=== PATIENT | female | born 1950 | race Asian ===

== ENCOUNTER 2018-08-12 11:26 | Inpatient (IN) | payer OTHER ==
[~2018-08-12] VITALS: Ht 149.9 cm; Wt 44.3 kg
[2018-08-12] MEDS ORDERED: ALBUTEROL SULFATE 5 MG/ML 20 ML NEB SOLN [BULK] NEB ONE (11:45)
[2018-08-12] MEDS ORDERED: ASPI81 PO (11:45)
[2018-08-12] MEDS ORDERED: GUAI118S23 PO (11:45)
[2018-08-12] MEDS ORDERED: MethylPREDNISolone SOD SUCC 125 MG/2 ML VIAL IVP ONE (11:45)
[2018-08-12] MEDS ORDERED: ASPIRIN 81 MG CHEWABLE TABLET PO ONE (11:45)
[2018-08-12] MEDS ORDERED: LORA10TA7 PO (11:45)
[2018-08-12] MEDS ORDERED: MONT10TA21 PO (11:45)
[2018-08-12] MEDS ORDERED: OMEP10 PO (11:45)
[2018-08-12 12:10] LABS: BASOPHILS % (AUTO) 1.3 % (0.0-2.0); EOSINOPHILS % (AUTO) 4.3 % (1.0-6.0); HEMATOCRIT 36.5 % (36-46); HEMOGLOBIN 12.1 g/dL (12.0-16.0); LYMPHOCYTES # (AUTO) 1.1 K/uL (1.0-4.8); LYMPHOCYTES % (AUTO) 13.6 % (22.0-44.0); MEAN CORPUSCULAR HEMOGLOBIN 29.8 pg (26.0-34.0); MEAN CORPUSCULAR HGB CONC 33.2 G/dL (31.0-37.0); MEAN CORPUSCULAR VOLUME 90 fL (80-100); MONOCYTES # (AUTO) 0.5 K/uL (0.1-1.0); MONOCYTES % (AUTO) 6.5 % (2.0-9.0); NEUTROPHILS # (AUTO) 6.1 K/uL (1.8-7.7); NEUTROPHILS % (AUTO) 74.3 % (40.0-70.0); PLATELET COUNT (AUTO) 509 K/uL (150-450); RED BLOOD CELL COUNT(AUTO) 4.07 MIL/uL (4.00-5.20); RED CELL DISTRIBUTION WIDTH 12.9 % (11.5-14.5)
[2018-08-12 12:26] LABS: B-TYPE NATRIURETIC PEPTIDE 110 pg/mL (0-100)
[2018-08-12 12:39] LABS: ABG A-A DIFF O2 20.3 mmHg (10-20.0); ABG BASE EXCESS 10.8 mmol/L (-2.0-3.0); ABG CARBOXYHEMOGLOBIN 1.1 % (0.0-1.5); ABG HCO3 31.8 mmol/L (22.0-26.0); ABG METHEMOGLOBIN 0.6 % (0.0-1.5); ABG OXYGEN CONTENT 17.1 mL/dL (15.0-23.0); ABG OXYGEN SATURATION 99.3 % (95.0-98.0); ABG OXYHEMOGLOBIN 97.6 % (94.0-100.0); ABG PH 7.264 (7.35-7.450); ABG TOTAL HEMOGLOBIN 12.2 G/dL (12.0-18.0); PO2, ARTERIAL BG 166.2 mmHg (79.0-87.0); SOURCE, BLOOD GAS ARTERIAL; TEMPERATURE, FAHRENHEIT, BG 99.1 FAHREN (96.0-98.6)
[2018-08-12 12:40] LABS: ABG PCO2 86 mmHg (35-45); O2 DEVICE,BLOOD GAS BIPAP (ROOM AIR); SITE, BLOOD GAS RT RADIAL
[2018-08-12] MEDS ORDERED: 0.9% SODIUM CHLORIDE 15 ML NEB SOLUTION NEB ONE (12:43)
[2018-08-12 12:46] LABS: ALANINE AMINOTRANSFERASE 27 U/L (12-78); ALBUMIN 3.7 g/dL (3.4-5.0); ALKALINE PHOSPHATASE 68 U/L (46-116); ANION GAP -1 mmol/L (8-16); ASPARTATE AMINOTRANSFERASE 22 U/L (15-37); BILIRUBIN,TOTAL 0.2 mg/dL (0.1-1.0); CALCIUM, TOTAL 9.4 mg/dL (8.8-10.5); CHLORIDE 100 mmol/L (98-107); CREATINE KINASE, TOTAL ONLY 81 U/L (26-192); CREATININE 0.54 mg/dL (0.60-1.30); GLOMERULAR FILTR. RATE CALC > 60 mL/min (>60); GLUCOSE,RANDOM 160 mg/dL (70-110); SODIUM SERUM 144 mmol/L (136-145); TOTAL PROTEIN, SERUM 7.4 g/dL (6.4-8.2); UREA NITROGEN, BLOOD 5 mg/dL (7-18)
[2018-08-12 12:49] LABS: CARBON DIOXIDE 45 mmol/L (22-29)
[2018-08-12] MEDS ORDERED: MAGNESIUM HYDROXIDE SUSPENSION 30 ML UDCUP PO PRN (13:00)
[2018-08-12] MEDS ORDERED: ACETAMINOPHEN 325 MG TABLET PO PRN (13:00)
[2018-08-12] MEDS ORDERED: DEXTROSE 50%-WATER 25 GM/50 ML SYRINGE IVP PRN (13:00)
[2018-08-12] MEDS: AZITHROMYCIN 500 MG/NS 250 ML IV SCH (13:06)
[2018-08-12 13:08] LABS: APPEARANCE,URINE CLEAR (CLEAR); BILIRUBIN,URINE NEGATIVE (NEGATIVE); GLUCOSE, URINE (UA) NEGATIVE (NEGATIVE); KETONES,URINE NEGATIVE (NEGATIVE); LEUKOCYTE ESTERASE ,URINE NEGATIVE (NEGATIVE); NITRATE,URINE NEGATIVE (NEGATIVE); OCCULT BLOOD,URINE NEGATIVE (NEGATIVE); PH,URINE 6.5 (5.0-8.0); PROTEIN,URINE NEGATIVE (NEGATIVE); UROBILINOGEN,URINE 0.2 mg/dL (<=1.0)
[2018-08-12] MEDS ORDERED: ALBUTEROL SULFATE 2.5 MG/0.5 ML NEB SOLUTION NEB PRN (14:00)
[2018-08-12] MEDS: CefTRIAXone 1 GM/DEXTROSE 50 ML IV SCH (14:15)
[2018-08-12] MEDS: MethylPREDNISolone SOD SUCC 125 MG/2 ML VIAL IVP SCH ×2 (14:15→18:18)
[2018-08-12] MEDS: ALBUTEROL SULFATE 2.5 MG/0.5 ML NEB SOLUTION NEB SCH ×3 (14:56→22:47)
[2018-08-12] MEDS: IPRATROPIUM BROMIDE 0.5 MG/2.5 ML NEB SOLUTION NEB SCH ×6 (14:56→23:00)
[2018-08-12] MEDS ORDERED: 0.9% SODIUM CHLORIDE 5 ML NEB SOLUTION NEB ONE ×2 (14:58→17:54)
[2018-08-12 16:29] LABS: INFLUENZA TYPE A NEGATIVE FOR TYPE A (NEGATIVE); INFLUENZA TYPE B NEGATIVE FOR TYPE B (NEGATIVE)
[2018-08-12 17:14] VITALS: BP 152/88
[2018-08-12] MEDS ORDERED: MethylPREDNISolone SOD SUCC 125 MG/2 ML VIAL IVP SCH (18:00)
[2018-08-12 20:30] VITALS: BP 144/83
[2018-08-12] MEDS: DOCUSATE SODIUM 100 MG CAPSULE PO SCH (21:00)
[2018-08-12] MEDS: HEPARIN SODIUM,PORCINE 5,000 UNITS/ML VIAL SQ SCH (21:32)
[2018-08-13] VITALS (8 sets, daily range): BP systolic 102–158; BP diastolic 48–90
[2018-08-13] MEDS: MethylPREDNISolone SOD SUCC 125 MG/2 ML VIAL IVP SCH ×4 (00:09→18:09)
[2018-08-13] MEDS: INSULIN LISPRO 100 UNITS/ML SQ PRN ×3 (00:14→21:49)
[2018-08-13] MEDS: ALBUTEROL SULFATE 2.5 MG/0.5 ML NEB SOLUTION NEB SCH ×6 (02:00→22:15)
[2018-08-13] MEDS: IPRATROPIUM BROMIDE 0.5 MG/2.5 ML NEB SOLUTION NEB SCH ×11 (02:00→23:00)
[2018-08-13] MEDS: IPRATROPIUM BROMIDE 0.5 MG/2.5 ML NEB SOLUTION NEB PRN (04:22)
[2018-08-13] MEDS: ALBUTEROL SULFATE 2.5 MG/0.5 ML NEB SOLUTION NEB PRN (04:22)
[2018-08-13 08:03] LABS: GLUCOSE,POINT OF CARE 153 MG/DL (70-110)
[2018-08-13 08:04] LABS: GLUCOSE,POINT OF CARE 142 MG/DL (70-110)
[2018-08-13] MEDS ORDERED: SODIUM CHLORIDE 0.9% 250 ML IV ONE (09:18)
[2018-08-13] MEDS: ASPIRIN 81 MG CHEWABLE TABLET PO SCH (09:23)
[2018-08-13] MEDS: HEPARIN SODIUM,PORCINE 5,000 UNITS/ML VIAL SQ SCH ×2 (09:23→21:29)
[2018-08-13] MEDS: PANTOPRAZOLE SODIUM 40 MG DR TABLET PO SCH (09:23)
[2018-08-13] MEDS: DOCUSATE SODIUM 100 MG CAPSULE PO SCH ×2 (09:23→21:29)
[2018-08-13] MEDS: MONTELUKAST SODIUM 10 MG TABLET PO SCH (09:23)
[2018-08-13] MEDS: LORATADINE 10 MG TABLET PO SCH (09:23)
[2018-08-13 11:24] LABS: GLUCOMETER DEV NAME(LOC) 5N.1; GLUCOSE,POINT OF CARE 183 MG/DL (70-110)
[2018-08-13] MEDS: AZITHROMYCIN 500 MG/NS 250 ML IV SCH (12:55)
[2018-08-13] MEDS: CefTRIAXone 1 GM/DEXTROSE 50 ML IV SCH (14:10)
[2018-08-13 17:00] LABS: GLUCOSE,POINT OF CARE 113 MG/DL (70-110)
[2018-08-13 22:39] LABS: GLUCOMETER DEV NAME(LOC) 5N.2; GLUCOSE,POINT OF CARE 185 MG/DL (70-110)
[2018-08-13 22:39] LABS: GLUCOMETER DEV NAME(LOC) 5N.2; GLUCOSE,POINT OF CARE 117 MG/DL (70-110)
[2018-08-14] MEDS: MethylPREDNISolone SOD SUCC 125 MG/2 ML VIAL IVP SCH ×4 (00:28→18:01)
[2018-08-14] MEDS: ALBUTEROL SULFATE 2.5 MG/0.5 ML NEB SOLUTION NEB PRN (01:06)
[2018-08-14] MEDS: IPRATROPIUM BROMIDE 0.5 MG/2.5 ML NEB SOLUTION NEB PRN (01:07)
[2018-08-14] MEDS: IPRATROPIUM BROMIDE 0.5 MG/2.5 ML NEB SOLUTION NEB SCH ×11 (04:15→23:32)
[2018-08-14] MEDS: ALBUTEROL SULFATE 2.5 MG/0.5 ML NEB SOLUTION NEB SCH ×6 (04:15→23:32)
[2018-08-14 05:18] VITALS: BP 139/84
[2018-08-14] MEDS: INSULIN LISPRO 100 UNITS/ML SQ PRN ×4 (06:09→21:39)
[2018-08-14 07:09] VITALS: BP 120/58
[2018-08-14 07:44] LABS: GLUCOMETER DEV NAME(LOC) 5N.1; GLUCOSE,POINT OF CARE 142 MG/DL (70-110)
[2018-08-14] MEDS: HEPARIN SODIUM,PORCINE 5,000 UNITS/ML VIAL SQ SCH ×2 (08:27→20:37)
[2018-08-14] MEDS: MULTIVITAMINS WITH MINERALS, THERAPEUTIC TABLET PO SCH (08:28)
[2018-08-14] MEDS: ASPIRIN 81 MG CHEWABLE TABLET PO SCH (08:28)
[2018-08-14] MEDS: MONTELUKAST SODIUM 10 MG TABLET PO SCH (08:28)
[2018-08-14] MEDS: PANTOPRAZOLE SODIUM 40 MG DR TABLET PO SCH (08:28)
[2018-08-14] MEDS: DOCUSATE SODIUM 100 MG CAPSULE PO SCH ×2 (08:28→20:37)
[2018-08-14] MEDS: LORATADINE 10 MG TABLET PO SCH (08:28)
[2018-08-14 08:35] LABS: ABG A-A DIFF O2 38.9 mmHg (10-20.0); ABG BASE EXCESS 20.4 mmol/L (-2.0-3.0); ABG HCO3 41.2 mmol/L (22.0-26.0); ABG METHEMOGLOBIN 0.4 % (0.0-1.5); ABG OXYGEN CONTENT 16.3 mL/dL (15.0-23.0); ABG OXYGEN SATURATION 98.1 % (95.0-98.0); ABG OXYHEMOGLOBIN 96.7 % (94.0-100.0); ABG PH 7.419 (7.35-7.450); ABG TOTAL HEMOGLOBIN 11.9 G/dL (12.0-18.0); PO2, ARTERIAL BG 106.2 mmHg (79.0-87.0); SOURCE, BLOOD GAS ARTERIAL; TEMPERATURE, FAHRENHEIT, BG 98.6 FAHREN (96.0-98.6)
[2018-08-14 08:36] LABS: ABG PCO2 71 mmHg (35-45); O2 DEVICE,BLOOD GAS CANNULA (ROOM AIR); SITE, BLOOD GAS RT RADIAL
[2018-08-14 11:38] VITALS: BP 152/79
[2018-08-14] MEDS: AZITHROMYCIN 500 MG/NS 250 ML IV SCH (12:59)
[2018-08-14] MEDS ORDERED: SODIUM CHLORIDE 0.9% 250 ML IV ONE (13:17)
[2018-08-14] MEDS: CefTRIAXone 1 GM/DEXTROSE 50 ML IV SCH (13:44)
[2018-08-14 16:11] VITALS: BP 151/76
[2018-08-14] MEDS: TAMSULOSIN HCL 0.4 MG CAPSULE PO SCH (20:37)
[2018-08-14 20:43] VITALS: BP 159/90
[2018-08-14 21:54] LABS: GLUCOMETER DEV NAME(LOC) 5N.2; GLUCOSE,POINT OF CARE 191 MG/DL (70-110)
[2018-08-14 21:54] LABS: GLUCOMETER DEV NAME(LOC) 5N.2; GLUCOSE,POINT OF CARE 144 MG/DL (70-110)
[2018-08-14 21:54] LABS: GLUCOMETER DEV NAME(LOC) 5N.1; GLUCOSE,POINT OF CARE 188 MG/DL (70-110)
[2018-08-15] MEDS: MethylPREDNISolone SOD SUCC 125 MG/2 ML VIAL IVP SCH ×5 (00:06→23:30)
[2018-08-15 00:26] VITALS: BP 124/69
[2018-08-15] MEDS: IPRATROPIUM BROMIDE 0.5 MG/2.5 ML NEB SOLUTION NEB SCH ×11 (02:35→23:26)
[2018-08-15] MEDS: ALBUTEROL SULFATE 2.5 MG/0.5 ML NEB SOLUTION NEB SCH ×6 (02:35→23:26)
[2018-08-15 05:13] VITALS: BP 124/70
[2018-08-15] MEDS: LORATADINE 10 MG TABLET PO SCH (08:28)
[2018-08-15] MEDS: MONTELUKAST SODIUM 10 MG TABLET PO SCH (08:29)
[2018-08-15] MEDS: PANTOPRAZOLE SODIUM 40 MG DR TABLET PO SCH (08:29)
[2018-08-15] MEDS: HEPARIN SODIUM,PORCINE 5,000 UNITS/ML VIAL SQ SCH ×2 (08:29→19:36)
[2018-08-15] MEDS: DOCUSATE SODIUM 100 MG CAPSULE PO SCH ×2 (08:29→19:35)
[2018-08-15] MEDS: ASPIRIN 81 MG CHEWABLE TABLET PO SCH (08:29)
[2018-08-15] MEDS: MULTIVITAMINS WITH MINERALS, THERAPEUTIC TABLET PO SCH (08:29)
[2018-08-15 09:04] VITALS: BP 137/76
[2018-08-15] MEDS: AZITHROMYCIN 500 MG/NS 250 ML IV SCH (11:29)
[2018-08-15] MEDS: INSULIN LISPRO 100 UNITS/ML SQ PRN ×3 (12:00→20:52)
[2018-08-15] MEDS: CefTRIAXone 1 GM/DEXTROSE 50 ML IV SCH (14:20)
[2018-08-15 15:51] VITALS: BP 150/92
[2018-08-15] MEDS: TAMSULOSIN HCL 0.4 MG CAPSULE PO SCH (19:35)
[2018-08-15 19:49] VITALS: BP 148/83
[2018-08-15 20:04] LABS: GLUCOMETER DEV NAME(LOC) 5N.2; GLUCOSE,POINT OF CARE 159 MG/DL (70-110)
[2018-08-15 20:04] LABS: GLUCOMETER DEV NAME(LOC) 5N.2; GLUCOSE,POINT OF CARE 197 MG/DL (70-110)
[2018-08-15 21:39] LABS: GLUCOMETER DEV NAME(LOC) 5N.1; GLUCOSE,POINT OF CARE 139 MG/DL (70-110)
[2018-08-15 21:39] LABS: GLUCOMETER DEV NAME(LOC) 5N.1; GLUCOSE,POINT OF CARE 191 MG/DL (70-110)
[2018-08-16 00:04] VITALS: BP 136/79
[2018-08-16] MEDS: ALBUTEROL SULFATE 2.5 MG/0.5 ML NEB SOLUTION NEB SCH ×6 (03:06→23:25)
[2018-08-16] MEDS: IPRATROPIUM BROMIDE 0.5 MG/2.5 ML NEB SOLUTION NEB SCH ×11 (03:06→23:25)
[2018-08-16 04:52] VITALS: BP 138/89
[2018-08-16] MEDS: MethylPREDNISolone SOD SUCC 125 MG/2 ML VIAL IVP SCH ×3 (05:35→17:16)
[2018-08-16] MEDS: HEPARIN SODIUM,PORCINE 5,000 UNITS/ML VIAL SQ SCH ×2 (08:11→20:08)
[2018-08-16] MEDS: MULTIVITAMINS WITH MINERALS, THERAPEUTIC TABLET PO SCH (08:11)
[2018-08-16] MEDS: ASPIRIN 81 MG CHEWABLE TABLET PO SCH (08:11)
[2018-08-16] MEDS: LORATADINE 10 MG TABLET PO SCH (08:11)
[2018-08-16] MEDS: DOCUSATE SODIUM 100 MG CAPSULE PO SCH ×2 (08:11→20:08)
[2018-08-16] MEDS: PANTOPRAZOLE SODIUM 40 MG DR TABLET PO SCH (08:11)
[2018-08-16] MEDS: MONTELUKAST SODIUM 10 MG TABLET PO SCH (08:11)
[2018-08-16] MEDS: INSULIN LISPRO 100 UNITS/ML SQ PRN ×2 (11:43→17:23)
[2018-08-16 12:02] VITALS: BP 142/89
[2018-08-16] MEDS: AZITHROMYCIN 500 MG/NS 250 ML IV SCH (13:12)
[2018-08-16] MEDS: CefTRIAXone 1 GM/DEXTROSE 50 ML IV SCH (15:07)
[2018-08-16 16:47] VITALS: BP 140/74
[2018-08-16 19:23] VITALS: BP 133/74
[2018-08-16 19:59] LABS: GLUCOMETER DEV NAME(LOC) 5N.1; GLUCOSE,POINT OF CARE 187 MG/DL (70-110)
[2018-08-16 19:59] LABS: GLUCOMETER DEV NAME(LOC) 5N.2; GLUCOSE,POINT OF CARE 104 MG/DL (70-110)
[2018-08-16 19:59] LABS: GLUCOMETER DEV NAME(LOC) 5N.2; GLUCOSE,POINT OF CARE 159 MG/DL (70-110)
[2018-08-16] MEDS: TAMSULOSIN HCL 0.4 MG CAPSULE PO SCH (20:08)
[2018-08-16 20:55] LABS: GLUCOMETER DEV NAME(LOC) 5N.1; GLUCOSE,POINT OF CARE 135 MG/DL (70-110)
[2018-08-16 23:58] VITALS: BP 126/66
[2018-08-17] MEDS: MethylPREDNISolone SOD SUCC 125 MG/2 ML VIAL IVP SCH ×3 (00:10→11:56)
[2018-08-17] MEDS: ALBUTEROL SULFATE 2.5 MG/0.5 ML NEB SOLUTION NEB SCH ×6 (02:59→23:42)
[2018-08-17] MEDS: IPRATROPIUM BROMIDE 0.5 MG/2.5 ML NEB SOLUTION NEB SCH ×9 (02:59→23:42)
[2018-08-17 03:42] VITALS: BP 116/68
[2018-08-17] MEDS: INSULIN LISPRO 100 UNITS/ML SQ PRN ×3 (05:19→20:36)
[2018-08-17 05:57] LABS: BASOPHILS % (AUTO) 0.1 % (0.0-2.0); EOSINOPHILS % (AUTO) 0.1 % (1.0-6.0); HEMATOCRIT 34.7 % (36-46); HEMOGLOBIN 12.2 g/dL (12.0-16.0); LYMPHOCYTES # (AUTO) 0.7 K/uL (1.0-4.8); MEAN CORPUSCULAR HEMOGLOBIN 30.7 pg (26.0-34.0); MEAN CORPUSCULAR HGB CONC 35.2 G/dL (31.0-37.0); MEAN CORPUSCULAR VOLUME 87 fL (80-100); MONOCYTES # (AUTO) 0.7 K/uL (0.1-1.0); MONOCYTES % (AUTO) 6.6 % (2.0-9.0); NEUTROPHILS # (AUTO) 8.5 K/uL (1.8-7.7); PLATELET COUNT (AUTO) 447 K/uL (150-450); RED BLOOD CELL COUNT(AUTO) 3.98 MIL/uL (4.00-5.20); RED CELL DISTRIBUTION WIDTH 12.8 % (11.5-14.5)
[2018-08-17 06:04] LABS: ANION GAP 2 mmol/L (8-16); CALCIUM, TOTAL 8.7 mg/dL (8.8-10.5); CARBON DIOXIDE 38 mmol/L (22-29); CHLORIDE 98 mmol/L (98-107); CREATININE 0.55 mg/dL (0.60-1.30); GLOMERULAR FILTR. RATE CALC > 60 mL/min (>60); GLUCOSE,RANDOM 194 mg/dL (70-110); POTASSIUM 4.1 mmol/L (3.5-5.1); SODIUM SERUM 138 mmol/L (136-145); UREA NITROGEN, BLOOD 9 mg/dL (7-18)
[2018-08-17 06:06] LABS: NEUTROPHILS % (AUTO) 86.2 % (40.0-70.0)
[2018-08-17 07:29] LABS: GLUCOMETER DEV NAME(LOC) 5N.1; GLUCOSE,POINT OF CARE 179 MG/DL (70-110)
[2018-08-17 07:39] VITALS: BP 125/80
[2018-08-17] MEDS: MULTIVITAMINS WITH MINERALS, THERAPEUTIC TABLET PO SCH (08:42)
[2018-08-17] MEDS: MONTELUKAST SODIUM 10 MG TABLET PO SCH (08:42)
[2018-08-17] MEDS: HEPARIN SODIUM,PORCINE 5,000 UNITS/ML VIAL SQ SCH ×2 (08:42→20:24)
[2018-08-17] MEDS: LORATADINE 10 MG TABLET PO SCH (08:42)
[2018-08-17] MEDS: DOCUSATE SODIUM 100 MG CAPSULE PO SCH ×2 (08:42→20:24)
[2018-08-17] MEDS: ASPIRIN 81 MG CHEWABLE TABLET PO SCH (08:42)
[2018-08-17] MEDS: PANTOPRAZOLE SODIUM 40 MG DR TABLET PO SCH (08:42)
[2018-08-17 11:30] VITALS: BP 138/74
[2018-08-17] MEDS: AZITHROMYCIN 500 MG/NS 250 ML IV SCH (13:06)
[2018-08-17] MEDS ORDERED: SODIUM CHLORIDE 0.9% 100 ML ONE (13:13)
[2018-08-17] MEDS: CefTRIAXone 1 GM/DEXTROSE 50 ML IV SCH (14:43)
[2018-08-17 15:42] VITALS: BP 117/71
[2018-08-17] MEDS: MethylPREDNISolone SOD SUCC 40 MG/ML VIAL IVP SCH ×2 (17:45→23:29)
[2018-08-17 18:24] LABS: GLUCOMETER DEV NAME(LOC) 5N.2; GLUCOSE,POINT OF CARE 177 MG/DL (70-110)
[2018-08-17 18:25] LABS: GLUCOMETER DEV NAME(LOC) 5N.2; GLUCOSE,POINT OF CARE 116 MG/DL (70-110)
[2018-08-17 19:30] VITALS: BP 134/71
[2018-08-17] MEDS: TAMSULOSIN HCL 0.4 MG CAPSULE PO SCH (20:24)
[2018-08-17 22:59] LABS: GLUCOMETER DEV NAME(LOC) 5N.2; GLUCOSE,POINT OF CARE 169 MG/DL (70-110)
[2018-08-17 23:32] VITALS: BP 125/69
[2018-08-18 03:04] VITALS: BP 128/80
[2018-08-18] MEDS: ALBUTEROL SULFATE 2.5 MG/0.5 ML NEB SOLUTION NEB SCH ×6 (03:30→22:26)
[2018-08-18] MEDS: IPRATROPIUM BROMIDE 0.5 MG/2.5 ML NEB SOLUTION NEB SCH ×6 (03:31→22:26)
[2018-08-18] MEDS: MethylPREDNISolone SOD SUCC 40 MG/ML VIAL IVP SCH ×4 (05:01→22:56)
[2018-08-18 05:39] LABS: GLUCOMETER DEV NAME(LOC) 5N.1; GLUCOSE,POINT OF CARE 115 MG/DL (70-110)
[2018-08-18 06:57] LABS: ANION GAP 2 mmol/L (8-16); CALCIUM, TOTAL 8.6 mg/dL (8.8-10.5); CARBON DIOXIDE 39 mmol/L (22-29); CHLORIDE 97 mmol/L (98-107); CREATININE 0.49 mg/dL (0.60-1.30); GLOMERULAR FILTR. RATE CALC > 60 mL/min (>60); GLUCOSE,RANDOM 138 mg/dL (70-110); POTASSIUM 4.7 mmol/L (3.5-5.1); SODIUM SERUM 138 mmol/L (136-145); UREA NITROGEN, BLOOD 12 mg/dL (7-18)
[2018-08-18 06:59] LABS: BASOPHILS % (AUTO) 0.2 % (0.0-2.0); EOSINOPHILS % (AUTO) 0 % (1.0-6.0); HEMATOCRIT 36.5 % (36-46); HEMOGLOBIN 12.3 g/dL (12.0-16.0); LYMPHOCYTES # (AUTO) 1.3 K/uL (1.0-4.8); LYMPHOCYTES % (AUTO) 8.1 % (22.0-44.0); MEAN CORPUSCULAR HEMOGLOBIN 29.6 pg (26.0-34.0); MEAN CORPUSCULAR HGB CONC 33.7 G/dL (31.0-37.0); MEAN CORPUSCULAR VOLUME 88 fL (80-100); MONOCYTES # (AUTO) 1.4 K/uL (0.1-1.0); MONOCYTES % (AUTO) 8.5 % (2.0-9.0); NEUTROPHILS # (AUTO) 13.8 K/uL (1.8-7.7); NEUTROPHILS % (AUTO) 83.2 % (40.0-70.0); PLATELET COUNT (AUTO) 490 K/uL (150-450); RED BLOOD CELL COUNT(AUTO) 4.15 MIL/uL (4.00-5.20); RED CELL DISTRIBUTION WIDTH 13.2 % (11.5-14.5)
[2018-08-18 07:07] VITALS: BP 123/69
[2018-08-18] MEDS: HEPARIN SODIUM,PORCINE 5,000 UNITS/ML VIAL SQ SCH ×2 (09:15→20:18)
[2018-08-18] MEDS: MONTELUKAST SODIUM 10 MG TABLET PO SCH (09:15)
[2018-08-18] MEDS: ASPIRIN 81 MG CHEWABLE TABLET PO SCH (09:15)
[2018-08-18] MEDS: LORATADINE 10 MG TABLET PO SCH (09:15)
[2018-08-18] MEDS: DOCUSATE SODIUM 100 MG CAPSULE PO SCH ×2 (09:15→20:18)
[2018-08-18] MEDS: PANTOPRAZOLE SODIUM 40 MG DR TABLET PO SCH (09:16)
[2018-08-18] MEDS: MULTIVITAMINS WITH MINERALS, THERAPEUTIC TABLET PO SCH (09:16)
[2018-08-18 11:04] VITALS: BP 116/70
[2018-08-18] MEDS: INSULIN LISPRO 100 UNITS/ML SQ PRN (11:55)
[2018-08-18] MEDS: AZITHROMYCIN 500 MG/NS 250 ML IV SCH (12:17)
[2018-08-18] MEDS ORDERED: AUD NEB ×2 (14:57→15:09)
[2018-08-18] MEDS ORDERED: AZITH500IV IV (14:58)
[2018-08-18] MEDS ORDERED: CEFX2I IVPB (15:00)
[2018-08-18] MEDS ORDERED: DSS100 PO (15:01)
[2018-08-18] MEDS ORDERED: HEPA500018 SQ (15:02)
[2018-08-18] MEDS ORDERED: IPRNEB IH ×2 (15:03→15:18)
[2018-08-18] MEDS ORDERED: MULT-1239 PO (15:04)
[2018-08-18] MEDS ORDERED: SM40I IVP (15:06)
[2018-08-18] MEDS ORDERED: PANT40TA25 PO (15:06)
[2018-08-18] MEDS ORDERED: TAMS0.4C32 PO (15:07)
[2018-08-18] MEDS ORDERED: ACET-784 PO (15:08)
[2018-08-18] MEDS ORDERED: D50SYG IVP (15:15)
[2018-08-18 15:17] VITALS: BP 122/68
[2018-08-18] MEDS ORDERED: INSU100V SQ (15:17)
[2018-08-18] MEDS ORDERED: MOM30 PO (15:18)
[2018-08-18] MEDS: CefTRIAXone 1 GM/DEXTROSE 50 ML IV SCH (15:28)
[2018-08-18 18:59] LABS: GLUCOMETER DEV NAME(LOC) 5N.1; GLUCOSE,POINT OF CARE 144 MG/DL (70-110)
[2018-08-18 18:59] LABS: GLUCOMETER DEV NAME(LOC) 5N.2; GLUCOSE,POINT OF CARE 135 MG/DL (70-110)
[2018-08-18 19:36] VITALS: BP 117/64
[2018-08-18] MEDS: TAMSULOSIN HCL 0.4 MG CAPSULE PO SCH (20:18)
[2018-08-18 22:49] LABS: GLUCOMETER DEV NAME(LOC) 5N.2; GLUCOSE,POINT OF CARE 127 MG/DL (70-110)
[2018-08-19] VITALS (7 sets, daily range): BP systolic 114–135; BP diastolic 61–75
[2018-08-19] MEDS: IPRATROPIUM BROMIDE 0.5 MG/2.5 ML NEB SOLUTION NEB SCH ×6 (03:09→23:39)
[2018-08-19] MEDS: ALBUTEROL SULFATE 2.5 MG/0.5 ML NEB SOLUTION NEB SCH ×6 (03:09→23:39)
[2018-08-19] MEDS: MethylPREDNISolone SOD SUCC 40 MG/ML VIAL IVP SCH ×4 (05:25→23:58)
[2018-08-19 06:10] LABS: BASOPHILS % (AUTO) 0.1 % (0.0-2.0); EOSINOPHILS % (AUTO) 0 % (1.0-6.0); HEMATOCRIT 37.1 % (36-46); HEMOGLOBIN 12.5 g/dL (12.0-16.0); LYMPHOCYTES # (AUTO) 0.9 K/uL (1.0-4.8); LYMPHOCYTES % (AUTO) 5.7 % (22.0-44.0); MEAN CORPUSCULAR HEMOGLOBIN 29.8 pg (26.0-34.0); MEAN CORPUSCULAR HGB CONC 33.7 G/dL (31.0-37.0); MEAN CORPUSCULAR VOLUME 88 fL (80-100); MONOCYTES % (AUTO) 6.3 % (2.0-9.0); NEUTROPHILS # (AUTO) 13.6 K/uL (1.8-7.7); PLATELET COUNT (AUTO) 469 K/uL (150-450); RED CELL DISTRIBUTION WIDTH 12.9 % (11.5-14.5)
[2018-08-19 06:45] LABS: GLUCOMETER DEV NAME(LOC) 5N.2; GLUCOSE,POINT OF CARE 146 MG/DL (70-110)
[2018-08-19 06:48] LABS: NEUTROPHILS % (AUTO) 87.9 % (40.0-70.0)
[2018-08-19 07:07] LABS: ANION GAP -2 mmol/L (8-16); CHLORIDE 96 mmol/L (98-107); CREATININE 0.53 mg/dL (0.60-1.30); GLOMERULAR FILTR. RATE CALC > 60 mL/min (>60); GLUCOSE,RANDOM 136 mg/dL (70-110); POTASSIUM 5.1 mmol/L (3.5-5.1); SODIUM SERUM 137 mmol/L (136-145); UREA NITROGEN, BLOOD 12 mg/dL (7-18)
[2018-08-19 07:14] LABS: CARBON DIOXIDE 43 mmol/L (22-29)
[2018-08-19] MEDS: PANTOPRAZOLE SODIUM 40 MG DR TABLET PO SCH (09:11)
[2018-08-19] MEDS: LORATADINE 10 MG TABLET PO SCH (09:11)
[2018-08-19] MEDS: DOCUSATE SODIUM 100 MG CAPSULE PO SCH ×2 (09:11→19:41)
[2018-08-19] MEDS: MONTELUKAST SODIUM 10 MG TABLET PO SCH (09:11)
[2018-08-19] MEDS: ASPIRIN 81 MG CHEWABLE TABLET PO SCH (09:11)
[2018-08-19] MEDS: MULTIVITAMINS WITH MINERALS, THERAPEUTIC TABLET PO SCH (09:12)
[2018-08-19] MEDS: HEPARIN SODIUM,PORCINE 5,000 UNITS/ML VIAL SQ SCH ×2 (09:12→19:41)
[2018-08-19] MEDS: AZITHROMYCIN 500 MG/NS 250 ML IV SCH (12:16)
[2018-08-19] MEDS: INSULIN LISPRO 100 UNITS/ML SQ PRN ×3 (12:18→20:33)
[2018-08-19] MEDS: CefTRIAXone 1 GM/DEXTROSE 50 ML IV SCH (13:31)
[2018-08-19] MEDS ORDERED: PRED20 PO (14:05)
[2018-08-19] MEDS: TAMSULOSIN HCL 0.4 MG CAPSULE PO SCH (19:41)
[2018-08-19 20:59] LABS: GLUCOMETER DEV NAME(LOC) 5N.2; GLUCOSE,POINT OF CARE 155 MG/DL (70-110)
[2018-08-20] MEDS: IPRATROPIUM BROMIDE 0.5 MG/2.5 ML NEB SOLUTION NEB SCH ×4 (03:55→16:24)
[2018-08-20] MEDS: ALBUTEROL SULFATE 2.5 MG/0.5 ML NEB SOLUTION NEB SCH ×4 (03:55→16:24)
[2018-08-20 05:02] VITALS: BP 112/65
[2018-08-20] MEDS: MethylPREDNISolone SOD SUCC 40 MG/ML VIAL IVP SCH (06:01)
[2018-08-20] MEDS: INSULIN LISPRO 100 UNITS/ML SQ PRN ×3 (06:27→17:08)
[2018-08-20 07:10] LABS: GLUCOMETER DEV NAME(LOC) 5N.2; GLUCOSE,POINT OF CARE 144 MG/DL (70-110)
[2018-08-20 07:49] VITALS: BP 130/74
[2018-08-20] MEDS: PANTOPRAZOLE SODIUM 40 MG DR TABLET PO SCH (08:25)
[2018-08-20] MEDS: LORATADINE 10 MG TABLET PO SCH (08:25)
[2018-08-20] MEDS: DOCUSATE SODIUM 100 MG CAPSULE PO SCH (08:25)
[2018-08-20] MEDS: ASPIRIN 81 MG CHEWABLE TABLET PO SCH (08:25)
[2018-08-20] MEDS: MONTELUKAST SODIUM 10 MG TABLET PO SCH (08:26)
[2018-08-20] MEDS: MULTIVITAMINS WITH MINERALS, THERAPEUTIC TABLET PO SCH (08:26)
[2018-08-20] MEDS: HEPARIN SODIUM,PORCINE 5,000 UNITS/ML VIAL SQ SCH (08:26)
[2018-08-20 11:26] VITALS: BP 110/68
[2018-08-20] MEDS ORDERED: PredniSONE 20 MG TABLET PO SCH (11:45)
[2018-08-20 15:37] VITALS: BP 141/74
[2018-08-20 20:30] LABS: GLUCOMETER DEV NAME(LOC) 5N.2; GLUCOSE,POINT OF CARE 197 MG/DL (70-110)
[2018-08-21] LABS: GLUCOMETER DEV NAME(LOC) 5N.1; GLUCOSE,POINT OF CARE 181 MG/DL (70-110)
[2018-08-21] LABS: GLUCOMETER DEV NAME(LOC) 5N.1; GLUCOSE,POINT OF CARE 181 MG/DL (70-110)
[2018-08-21 05:24] LABS: GLUCOMETER DEV NAME(LOC) 5S.1; GLUCOSE,POINT OF CARE 203 MG/DL (70-110)
== END 2018-08-20 17:45 | DRG 208 ==
LOC: EMS 11:27 → 5S 15:58 → ICU 20:15 → 5N 08-13 17:00
PROVIDERS: ADMIT Internal Medicine; ATTEND Internal Medicine
PROC: 5A1935Z Respiratory Ventilation, Less than 24 Consecutive Hours (ICD-10-PCS; principal; 2018-08-12)
PROC: 5A09357 Assistance with Respiratory Ventilation, Less than 24 Consecutive Hours, Continuous Positive Airway Pressure (ICD-10-PCS; 2018-08-12)
PROC: 5A09357 Assistance with Respiratory Ventilation, Less than 24 Consecutive Hours, Continuous Positive Airway Pressure (ICD-10-PCS; 2018-08-13)
DX: J96.01 Acute respiratory failure with hypoxia (principal); J18.9 Pneumonia, unspecified organism; E43 Unspecified severe protein-calorie malnutrition; J44.1 Chronic obstructive pulmonary disease with (acute) exacerbation; Z68.1 Body mass index [BMI] 19.9 or less, adult; R64 Cachexia; J44.0 Chronic obstructive pulmonary disease with (acute) lower respiratory infection; E87.2 Acidosis; J96.02 Acute respiratory failure with hypercapnia; E11.9 Type 2 diabetes mellitus without complications; I10 Essential (primary) hypertension; R26.2 Difficulty in walking, not elsewhere classified; J20.9 Acute bronchitis, unspecified; J84.10 Pulmonary fibrosis, unspecified; F32.9 Major depressive disorder, single episode, unspecified; K21.9 Gastro-esophageal reflux disease without esophagitis; E78.00 Pure hypercholesterolemia, unspecified; Z87.01 Personal history of pneumonia (recurrent); Z93.0 Tracheostomy status
CPT/HCPCS: 71250; 82805; 87015; 87081; 87206; 87804; 93005; 94640; 94644; 94660; 96365; 96366; 96375; 97116; 97162; 97166; 97535; 99291; G0378; J0456; J0696; J1644; J2920; J2930; J7050